=== PATIENT | female | born 1985 | race Caucasian/White ===

== ENCOUNTER 2018-03-14 21:18 | Emergency (ER) ==
[2018-03-14 21:31] VITALS: BP 126/80; TEMP 99.2; BMI 33.4
[2018-03-14] MEDS ORDERED: MOTRIN SUSP PO STA (21:57)
--- NOTE | 2018-03-14 21:59 | ED.PDOC ---
General ED Provider: Dr. TAMIKO LUCERO-ER Chief Complaint: Extremity Pain/Injury Stated Complaint: i fell when cleaning my pool--my shoulder hurts Time Seen by Physician: 21:20 Mode of Arrival: Walk-In Information Source: Patient Exam Limitations: No limitations Primary Care Provider: MAGGIE AU Nursing and Triage Documentation Reviewed and Agree: Yes Reviewed sepsis parameters & appropriate labs ordered?: Yes System Inflammatory Response Syndrome: Not Applicable Sepsis Protocol: For patient's 13 years and over: Temp is 96.8 and below OR 101 and greater Pulse >90 BPM Resp >20/minute Acutely Altered Mental Status Are patient's symptoms suggestive of a new infection, such as: -Pneumonia -Skin, Soft Tissue -Endocarditis -UTI -Bone, Joint Infection -Implantable Device -Acute Abdominal Infection -Wound Infection -Meningitis -Blood Stream Catheter Infection -Unknown Musculoskeletal Complaint Exam - Shoulder Pain Complaint/Exam Mechanism of Injury: Reports: No known trauma Onset/Duration: today Symptoms Are: Still present Initial Severity: Mild Current Severity: Moderate Location: Reports: Discrete (right shoulder) Character: Reports: Dull, Aching Aggravating: Reports: Movement, Lifting, Flexion, Extension, Internal rotation, External rotation, Abduction Associated Signs and Symptoms: Denies: Swelling, Redness, Bruising, Fever, Weakness, Numbness, Tingling Tenderness: Present: Clavicle, Proximal humerus, Rotator cuff muscles Limited Range of Motion: Present: Abduction, Adduction, Flexion, Extension, Internal rotation, External rotation, Rotator cuff muscles Differential Diagnoses: Contusion, Closed Fracture Review of Systems - Review Of Systems Constitutional: Reports: No symptoms Eyes: Reports: No symptoms Ears, Nose, Mouth, Throat: Reports: No symptoms Respiratory: Reports: No symptoms Cardiac: Reports: No symptoms GI: Reports: No symptoms : Reports: No symptoms Musculoskeletal: Reports: Joint pain, Muscle pain Skin: Reports: No symptoms Neurological: Reports: No symptoms Endocrine: Reports: No symptoms Hematologic/Lymphatic: Reports: No symptoms All Other Systems: Reviewed and Negative Past Medical History - Past Medical History Previously Healthy: Yes Endocrine: Reports: Unknown Cardiovascular: Reports: Unknown Respiratory: Reports: Unknown Hematological: Reports: Unknown Gastrointestinal: Reports: Unknown Genitourinary: Reports: Unknown Neuro/Psych: Reports: Unknown Musculoskeletal: Reports: Unknown Cancer: Reports: Unknown Last Menstrual Period: THIS WEEK - Surgical History General Surgical History: Reports: Unknown - Family History Family History: Reports: Unknown - Social History Smoking Status: Current every day smoker, Heavy tobacco smoker Hx Substance Use: No Alcohol Screening: Occasionally - Immunizations Tetanus Shot up to Date: Yes Physical Exam - Physical Exam Appearance: Well-appearing, No pain distress, Well-nourished Eyes: TARIQ, EOMI, Conjunctiva clear ENT: Ears normal, Nose normal, Oropharynx normal Neck: Supple Respiratory: Airway patent, Breath sounds clear, Breath sounds equal, Respirations nonlabored Cardiovascular: RRR GI/: Soft, Nontender, No masses, Bowel sounds normal, No Organomegaly Musculoskeletal: Limited ROM Skin: Warm, Dry, Normal color Neurological: Sensation intact Psychiatric: Affect appropriate, Mood appropriate Interpretation - Radiology Interpretation Radiology Interpretation By: Radiologist Radiology Results: Negative Critical Care Note - Critical Care Note Total Time (mins): 0 Course - Course Orders, Labs, Meds: Lab Review 03/14/18 21:35 Urine Test Negative Orders Category Date Time Status ED SPLINT APPLICATION .ONCE EMERGENCY 03/14/18 21:57 Active URINE Stat LAB 03/14/18 21:35 Completed Ibuprofen Susp [Motrin Susp] MEDS 03/14/18 21:57 Discontinued 600 mg PO ONCE STA CLAVICLE, RIGHT 2 VIEWS Stat RADS 03/14/18 21:30 Completed SHOULDER, RIGHT MIN 2V Stat RADS 03/14/18 21:30 Completed Medications Discontinued Medications Generic Name Dose Route Start Last Admin Trade Name Freq PRN Reason Stop Dose Admin Ibuprofen 600 mg 03/14/18 21:57 03/14/18 22:11 Motrin Susp PO 03/14/18 21:58 600 mg ONCE STA Administration Vital Signs: Temp Pulse Resp BP Pulse Ox 03/14/18 21:19 99.2 F 107 H 18 126/80 98 Departure - Departure Time of Disposition: 22:14 Disposition: HOME SELF-CARE Discharge Problem: Injury of upper extremity Instructions: Rotator Cuff Injury (ED) Condition: Good Pt referred to PMD for follow-up: Yes IPMP verified?: No Additional Instructions: stay in sling--ultram 50mg 1-2 tbs q 6hrs prn pain #15--f/u with pcp Allergies/Adverse Reactions: Allergies No Known Drug Allergies Adverse Reaction (Verified 03/14/18 21:24) Home Medications: Ambulatory Orders 1 [No Reported Medications] 03/14/18 Disposition Discussed With: Patient
--- NOTE | 2018-03-14 22:05 | DI ---
EXAM: T views of the right clavicle. HISTORY: Trauma. FINDINGS: The right clavicle is intact with no evidence of fracture. The joint spaces are maintained . No soft tissue abnormality. Impression: Negative right clavicle.
--- NOTE | 2018-03-14 22:12 | DI ---
EXAM: Three views of the right shoulder. HISTORY: Trauma. FINDINGS: The bones are intact with no evidence of fracture. The joint spaces are maintained. No so ft tissue abnormality. Impression: Negative right shoulder.
== END 2018-03-14 22:21 | disposition home or self-care (01) ==
LOC: ED 21:18
DX: S46.001A Unspecified injury of muscle(s) and tendon(s) of the rotator cuff of right shoulder, initial encounter (principal); W19.XXXA Unspecified fall, initial encounter; F17.210 Nicotine dependence, cigarettes, uncomplicated
CPT/HCPCS: 81025; 99283